=== PATIENT | female | born 1960 | race American Indian/Alaskan Native ===

== ENCOUNTER 2017-04-29 00:40 | Emergency (ER) | payer OTHER ==
[2017-04-29 00:47] VITALS: BP 159/99; TEMP 98.3; O2SAT 98
[2017-04-29] MEDS ORDERED: Absorbable Gelatin Sponge Size 12-7 TOP STA (01:12)
[2017-04-29] MEDS ORDERED: Absorbable Gelatin Sponge Size 12-7 ONE ×2 (01:24→01:50)
--- NOTE | 2017-04-29 01:28 | C.PDOC ---
History Of Present Illness 56 yo female c/o laceration to her right hand. Notes she was washing a broken glass and it cut her. No change in sensation. No other injury. 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 Time Seen by Provider: 04/29/17 00:50 Chief Complaint (Nursing): Abnormal Skin Integrity History Per: Patient History/Exam Limitations: no limitations Onset/Duration Of Symptoms: Hrs Past Medical History Vital Signs: Last Vital Signs Temp 98.3 F 04/29/17 00:44 Pulse 72 04/29/17 01:48 Resp 18 04/29/17 01:48 BP 159/99 H 04/29/17 00:44 Pulse Ox 98 04/29/17 01:48 - Medical History PMH: Arthritis, Hypothyroidism Family History: States: Unknown Family Hx - Social History Hx Alcohol Use: No Hx Substance Use: No - Immunization History Hx Tetanus Toxoid Vaccination: No Hx Influenza Vaccination: No Hx Pneumococcal Vaccination: No Review Of Systems Constitutional: Negative for: Fever Musculoskeletal: Positive for: Hand Pain Neurological: Negative for: Weakness, Numbness Physical Exam - Physical Exam Appears: Well, Non-toxic, No Acute Distress Skin: Warm, Dry Head: Atraumatic, Normacephalic Eye(s): bilateral: Normal Inspection, EOMI Nose: Normal Oral Mucosa: Moist Neck: Normal, Normal ROM, Supple Chest: Symmetrical Respiratory: No Accessory Muscle Use Extremity: Normal ROM, Capillary Refill (< 2 sec), Other ((+) right 1st finger : 2cm superficial avulsion (+) right 2nd proximal phalanx: 1 cm superficial laceration (+) 2nd-4th fingers ampuation proximal to the PIP) Pulses: Left Radial: Normal, Right Radial: Normal Neurological/Psych: Oriented x3, Normal Speech, Normal Sensation ED Course And Treatment O2 Sat by Pulse Oximetry: 98 Progress Note: Discussed wound care. Wound check in 3 days. Laceration - Laceration Repair right 1st finger Wound Length (In cm): 2 Description Of Wound: Irregular Wound Cleansed With: Sterile Saline Wound Examination: Irrigated With Saline, No FB With Wound Exploration, No Tendon Injury With Wound Exploration Wound Complexity: Simple (gel foam and pressure dressing applied) 2nd finger Wound Length (In cm): 1 Description Of Wound: Linear Wound Cleansed With: Betadine, Sterile Saline Wound Examination: Irrigated With Saline, No FB With Wound Exploration, No Tendon Injury With Wound Exploration Wound Closure: Steri Strips, Skin Glue Wound Complexity: Simple Disposition - Disposition Disposition: HOME/ ROUTINE Disposition Time: 01:28 Condition: STABLE Additional Instructions: Wound check in 3 days. Keep area clean and dry. Watch for signs of infection including redness, swelling and discharge. Instructions: Finger Laceration (ED) Forms: [facility] (Bulgarian) - Clinical Impression Clinical Impression: Finger laceration
[2017-04-29 02:10] VITALS: PULSE 72; RESP 18
== END 2017-04-29 01:48 | disposition home or self-care (01) ==
LOC: C.ER 00:40
DX: S61.011A Laceration without foreign body of right thumb without damage to nail, initial encounter (principal); S61.210A Laceration without foreign body of right index finger without damage to nail, initial encounter; W25.XXXA Contact with sharp glass, initial encounter; Y93.G1 Activity, food preparation and clean up; Y92.000 Kitchen of unspecified non-institutional (private) residence as the place of occurrence of the external cause